=== PATIENT | female | born 1965 | race Caucasian/White ===

== ENCOUNTER 2019-06-02 11:43 | Emergency (ER) | payer OTHER ==
[~2019-06-02] VITALS: Ht 154.9 cm; Wt 64.9 kg
[2019-06-02 11:53] VITALS: BP 106/61
--- NOTE | 2019-06-02 12:03 | NUR ---
PATIENT AMBULATED TO BED 5 AT THIS TIME.
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
[2019-06-02] MEDS ORDERED: IBUPROFEN 400 MG TAB PO ONE (12:30)
--- NOTE | 2019-06-02 12:35 | NUR ---
REPORT TO POOJA AGUILERA FOR CONTINUATION OF CARE.
[2019-06-02 12:54] VITALS: BP 106/61
--- NOTE | 2019-06-02 12:55 | NUR ---
Patient discharged with v/s stable. Written and verbal after care instructions given and explained. Patient verbalized understanding. Ambulatory with steady gait. All questions addressed prior to discharge. Advised to follow up with PMD. PT WENT HOME WITH FAMILY MEMBER. WALKED OUT OF ER BY HERSLEF. STABLE AT TIME OF DISCHARGE.
== END 2019-06-02 12:55 | disposition home or self-care (01) ==
LOC: MED 11:43
DX: S00.93XA Contusion of unspecified part of head, initial encounter (principal); V43.52XA Car driver injured in collision with other type car in traffic accident, initial encounter; Y93.89 Activity, other specified; Y92.89 Other specified places as the place of occurrence of the external cause; Y99.8 Other external cause status; S39.012A Strain of muscle, fascia and tendon of lower back, initial encounter; E07.9 Disorder of thyroid, unspecified; F17.210 Nicotine dependence, cigarettes, uncomplicated; Z98.890 Other specified postprocedural states
CPT/HCPCS: 99282

== ENCOUNTER 2019-09-10 09:07 | Emergency (ER) | payer OTHER ==
[~2019-09-10] VITALS: Ht 154.9 cm; Wt 64.4 kg
[2019-09-10 09:15] VITALS: BP 133/60
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
[2019-09-10] MEDS ORDERED: KETOROLAC 60 MG/2 ML VIAL IM ONE (09:35)
--- NOTE | 2019-09-10 09:40 | NUR ---
Patient taken to XRAY via wheelchair by tech.
--- NOTE | 2019-09-10 09:41 | NUR ---
XRAY AT BEDSIDE
--- NOTE | 2019-09-10 10:30 | NUR ---
NADR, RATES PAIN 5/10 NOW.
[2019-09-10 10:44] VITALS: BP 133/60
== END 2019-09-10 10:45 | disposition home or self-care (01) ==
LOC: MED 09:07
DX: S20.20XA Contusion of thorax, unspecified, initial encounter (principal); E03.9 Hypothyroidism, unspecified; X58.XXXA Exposure to other specified factors, initial encounter; Y93.89 Activity, other specified; Y92.89 Other specified places as the place of occurrence of the external cause; Y99.8 Other external cause status
CPT/HCPCS: 71101; 96372; 99283; J1885

== ENCOUNTER 2022-01-23 22:50 | Emergency (ER) | payer OTHER ==
[~2022-01-23] VITALS: Ht 154.9 cm; Wt 69.4 kg
[2022-01-23 23:02] VITALS: BP 131/72
--- NOTE | 2022-01-23 23:02 | NUR ---
to bed ambulatory
--- NOTE | 2022-01-23 23:29 | NUR ---
Dr. Rico examining patient.
[2022-01-23] MEDS ORDERED: ACETAMINOPHEN EXTRA STRENGTH 500 MG TAB PO ONE (23:35)
--- NOTE | 2022-01-23 23:36 | NUR ---
56 Y/O FEMALE BIBS FROM HOME, C/O HYPERTENSION XTODAY. PT STATES SHE HAS HAD A HEADACHE, 8/10, CONSTANT, AND DULL. PT STATES THAT SHE HAS BEEN KEEPING TRACK OF HER BP THROUGHOUT THE DAY AND NOTICED THAT HE BP HAS BEEN 180/80. DENIES V/D, CP, SOB, FEVER, OR COUGH. UNLABORED BREATHING, AMBULATORY, A/OX4. DENIES HX NKA NO MEDS
[2022-01-23 23:47] VITALS: BP 133/74
--- NOTE | 2022-01-23 23:51 | NUR ---
Patient discharged with v/s stable. Written and verbal after care instructions given and explained. Patient verbalized understanding. Ambulatory with steady gait. All questions addressed prior to discharge. Advised to follow up with PMD. VSS, A/OX4, UNLABORED BREATHING, AMBULATORY, AND CALM DEMEANOR.
== END 2022-01-23 23:51 | disposition home or self-care (01) ==
LOC: MED 22:50
DX: I10 Essential (primary) hypertension (principal); R51.9 Headache, unspecified; E03.9 Hypothyroidism, unspecified; F17.200 Nicotine dependence, unspecified, uncomplicated; Z98.890 Other specified postprocedural states
CPT/HCPCS: 99282

== ENCOUNTER 2022-01-27 17:20 | Emergency (ER) | payer OTHER ==
[~2022-01-27] VITALS: Ht 152.4 cm; Wt 67.6 kg
[2022-01-27 17:24] VITALS: BP 124/71
--- NOTE | 2022-01-27 17:39 | NUR ---
PT IS SITTING ON BED. RASH ON LEFT ANTERIOR LEG X 10 DAYS. BURNING PAIN. DENIES MEDICAL HOSTORY. NO ACUTE DISTRESS.
[2022-01-27] MEDS ORDERED: KETOROLAC 30 MG/ML VIAL IM ONE (17:50)
[2022-01-27] MEDS ORDERED: IBUP-2213 PO (17:53)
[2022-01-27] MEDS ORDERED: GABA300C PO (17:53)
[2022-01-27] MEDS ORDERED: ACYC-279 PO (17:53)
[2022-01-27] MEDS ORDERED: LID5T TP (17:55)
--- NOTE | 2022-01-27 18:22 | NUR ---
PT WAS EXAMINED BY ED MD THEN D/C'D HOME WITH RX. Patient discharged with v/s stable. Written and verbal after care instructions given and explained. Patient alert, oriented and verbalized understanding of instructions. Ambulatory with steady gait. All questions addressed prior to discharge. ID band removed. Patient advised to follow up with PMD. Rx of ACYCLOVIR, GABAPENTIN AND IBUPROFEN given. Patient educated on indication of medication including possible reaction and side effects. Opportunity to ask questions provided and answered.
[2022-01-27 18:25] VITALS: BP 134/75
== END 2022-01-27 18:22 | disposition home or self-care (01) ==
LOC: MED 17:20
DX: B02.9 Zoster without complications (principal); R03.0 Elevated blood-pressure reading, without diagnosis of hypertension; E03.9 Hypothyroidism, unspecified
CPT/HCPCS: 99283